=== PATIENT | male | born 1960 | race Caucasian/White ===

== ENCOUNTER 2018-05-24 00:34 | Outpatient (CLI) | payer BC, SELFPAY ==
--- NOTE | 2018-05-24 15:45 | DI.MRI_ITS ---
SYMPTOMS/DIAGNOSIS: PAIN RADIATING DOWN LEFT LEG, LEFT LUMBAR RADICULOPATHY, M54.16, LOW BACK PAIN X YEARS, INCREASING PAIN X 3 MONTHS, NO INJURY, NO SURGERY, PAIN RADIATING LEFT > RIGHT MRI OF THE LUMBAR SPINE: T1, T2 and STIR sagittal and T1 and T2 axial sequences were performed. Comparison is made with abdominal CT dated August,. There is a declivity in the superior endplate of L3, consistent with a Schmorl's node. It appears unchanged when compared with the previous CT. There is loss of disc height and disc bulging from T12-L1 through L2-3. There is no significant central canal stenosis or neural foraminal narrowing at these levels. At L3-4, there is mild broad-based disc bulging and mild facet degenerative changes, but no significant central canal stenosis or neural foraminal narrowing. At L4-5, there is mild broad-based disc bulging. There is a small left paracentral disc protrusion. There are facet degenerative changes and ligamentous hypertrophy, which combine to produce a moderate degree of central canal stenosis. There is also mild left neural foraminal narrowing. At L5-S1, the disc appears intact. There are minimal facet degenerative changes and no significant neural foraminal narrowing or central canal stenosis. The aorta is normal in diameter. The conus medullaris appears normal as well. IMPRESSION: Small left paracentral disc protrusion at L4-5. A combination of degenerative changes and the disc protrusion create moderate central canal stenosis and mild left neural foraminal narrowing.
== END 2018-05-24 00:54 ==
PROVIDERS: PCP Family Medicine; Visit Provider Family Medicine
DX: M54.16 Radiculopathy, lumbar region (principal); M51.27 Other intervertebral disc displacement, lumbosacral region; M48.061 Spinal stenosis, lumbar region without neurogenic claudication; M47.26 Other spondylosis with radiculopathy, lumbar region
CPT/HCPCS: 72148

== ENCOUNTER 2018-07-17 08:11 | Outpatient (CLI) | payer BC, SELFPAY ==
--- NOTE | 2018-07-17 06:00 | DI.RAD_ITS ---
SYMPTOM/DIAGNOSIS: LUMBAR RADICULOPATHY, LUMBAR EPIDURAL STEROID INJECTION C-ARM: Fluoroscopy Time: 21.5sec,7.32mgy Images submitted from the pain clinic demonstrate a needle overlying the midline at the level of L 4-5 in conjunction with a lumbar epidural steroid injection carried out by Dr. Espinoza. Please see the procedure report for further information.
[2018-07-17 08:19] VITALS: BP 130/88; PULSE 63; RESP 16; TEMP 36.9; O2SAT 95
--- NOTE | 2018-07-17 09:16 | PDOC.PAIN ---
Pain Clinic Procedure Note Current Active Problems Problem Status Onset Lumbar radicular pain Chronic Epidural Steroid Injection Procedure Note COMMENTS: Patient has a disc herniation at L4-5 to the left with left lower extremity pain and back pain. He also complains of testicular pain pain radiating to both feet. He has significant thoracic kyphosis on examination JONATHAN LANE has been referred to the [facility] for lumbar epidural steroid injection. The patient was greeted by the nurse who verified patients name and . Patient was then taken to the fluoroscopy suite. The patient was interviewed and the medial record reviewed. There were no medical, pharmacologic, radiographic, or other structural contraindications to attempting fluoroscopically guided lumbar epidural steroid injection. Risks and expected side effects as well as potential benefits of the procedure were reviewed and voiced concerns expressed. The patient consent form was signed and witnessed. Standard patient time-out procedure was performed. The patient was placed in the prone position on the fluoroscopy table and automated blood pressure cuff and pulse oximeter applied. The skin entry point for entering/approaching the epidural space by a {L4-5 left of midline} and marked. Following thorough chlorhexadine preparation of the skin and draping and 1% lidocaine infiltration of the skin entry point and subcutaneous tissues, a 17 gauge Touhy needle was placed under fluoroscopic guidance and with loss of resistance technique into the epidural space. Needle tip placement and depth were aided and confirmed by fluoroscopy. There was no paresthesia or return of blood or CSF through the needle. 1 cc's of Omnipaque 240 was injected with clear epidural spread confirmed with fluoroscopy. 80mg depomedrol was injected. There was not any unusual discomfort expressed by JONATHAN LANE. Patient's vital signs were stable throughout the procedure and were as recorded in nursing records. Follow up plans and appointments were discussed with patient. Post procedure instruction was given as documented in nursing records and having met discharge criteria and was discharged from the [facility]. COMMENTS: Patient will follow-up as needed. I would consider he follow-up with neurology or consider thoracic imaging if he is not improved.
[2018-07-17 09:25] VITALS: BP 151/86; PULSE 76; RESP 13; O2SAT 95
[2018-07-17] MEDS: methylPREDNISolone ACETATE 40 MG/ML VIAL IJ (09:25)
[2018-07-17] MEDS: Omnipaque 240 MG/ML 50 ML BTL IJ (09:25)
== END 2018-07-17 08:31 ==
PROVIDERS: PCP Family Medicine; Visit Provider Anesthesiology Pain Medicine
DX: M54.16 Radiculopathy, lumbar region (principal)
CPT/HCPCS: 62323; 72100; J1030; Q9967

== ENCOUNTER 2020-04-16 19:12 | Outpatient (REF) | payer BC, SELFPAY ==
[2020-04-16 20:41] LABS: Abs Immature Grans 0.03 10^3/uL (0.0-0.06); Absolute Basophil Count 0.05 10^3/uL (0.0-0.2); Absolute Eosinophil Count 0.11 10^3/uL (0.0-0.7); Absolute Lymphocyte Count 3.37 10^3/uL (1.2-3.4); Absolute Monocyte Count 0.75 10^3/uL (0.1-0.8); Absolute Neutrophil Count 5.76 10^3/uL (1.2-6.7); Basophils % 0.5; Eosinophils % 1.1; HCT 43.4 % (40.0-50.0); HGB 14.9 g/dL (13.5-17.5); Immature Grans % 0.3; Lymphocytes % 33.5; MCHC 34.3 % (32.0-36.0); MCV 96.2 fL (80-95); MPV 10.7 fL (8.0-11.0); Monocytes % 7.4; Neutrophils % 57.2; Nucleated RBC 0 %; Platelet Count 258 10^3/uL (130-400); RBC 4.51 10^6/uL (4.36-5.78); RDW 11.5 % (11.8-14.1); RDW-SD 40.8 fL; WBC 10.07 10^3/uL (4.4-10.8)
[2020-04-16 20:48] LABS: ALT 31 U/L (16-63); AST 18 U/L (15-37); Albumin 4.1 g/dL (3.4-5.0); Alkaline Phosphatase 56 U/L (46-116); Anion Gap 9.1 mmol/L (3-11); BUN 13 mg/dL (7-18); Bilirubin, Total 0.3 mg/dL (0.2-1.0); C-Reactive Protein 0.18 mg/dL (0.0-0.3); CO2 27.9 mmol/L (21.0-32.0); Calcium 8.9 mg/dL (8.5-10.1); Chloride 106 mmol/L (98-107); Glucose 91 mg/dL (74-106); Potassium 3.8 mmol/L (3.5-5.1); Sodium 143 mmol/L (136-145); Total Protein 7.3 g/dL (6.4-8.2)
== END 2020-04-16 19:32 ==
LOC: LBN 19:12
PROVIDERS: PCP Nurse Practitioner; Visit Provider Nurse Practitioner Family
DX: R10.9 Unspecified abdominal pain (principal)
CPT/HCPCS: 80053; 85025; 86140

== ENCOUNTER 2020-05-14 01:57 | Outpatient (CLI) | payer BC, SELFPAY ==
[2020-05-15 13:55] LABS: COVID-19 RT-PCR UVMMC Result Negative (Negative)
== END 2020-05-14 01:58 | disposition home or self-care (01) ==
LOC: LBO 01:57
PROVIDERS: PCP Nurse Practitioner; Visit Provider Surgery
DX: Z20.822 Contact with and (suspected) exposure to COVID-19 (principal)
CPT/HCPCS: U0003

== ENCOUNTER 2020-05-18 06:12 | Day surgery (SDC) | payer BC, SELFPAY ==
[2020-05-18 06:20] VITALS: BP 126/82; PULSE 70; RESP 18; TEMP 36.8; O2SAT 95
[2020-05-18] MEDS: Lactated Ringers 1,000 ML 80 ML IV (06:43)
--- NOTE | 2020-05-18 06:54 | W.PM.ENDDOP ---
Date of service: 05/18/20 Time of Service: 07: Endoscopy Report DATE OF PROCEDURE: 05/18/20 PRE-OP DIAGNOSIS: Abdominal pain, Hx of polyps, GERD POST-OP DIAGNOSIS: other (Gastritis, esophagitis, diverticulosis) PROCEDURE: 1. EGD with biopsies 2. Colonoscopy SURGEON: Peggy Lechuga ANESTHESIA: other (General/ASA 2/Humberto Eric, RHIANNON) ESTIMATED BLOOD LOSS: 3 PATHOLOGY: other (Antrum bx, GE junction bx, distal esophagus bx) COMPLICATIONS: None DISPOSITION: same day INDICATIONS: Mr. Givens is a 59-year-old gentleman who has been having abdominal pain for the last 4 to 5 weeks. The pain is along his beltline. Sometimes he feels like even just the pants rubbing on his skin is painful. The pain is worse with sitting or bending. He denies any bowel habit changes. He denies any bleeding, nausea or vomiting. He does have a history of tubular adenomas back in 2014. He was supposed to have another colonoscopy in 2019. He also has a history of GERD. He complains of some bloating and feels like his abdomen is doughy. Labs were within normal when they were checked. He also reports some intermittent malaise and chills. He has not had any fevers and did not have a fever when he was seen at [facility]. I did not feel any right inguinal hernia. I recommend starting with an EGD and colonoscopy. We will make sure that there is no pathology in the stomach or large bowel. If this is negative then I will try to get a CT scan abdomen and pelvis approved by his insurance company. Risks, benefits and alternatives were reviewed with Mr. Givens. Complications include but are not limited to bleeding, infection, perforation, missed small polyp or lesion, adverse reaction to the medications. Questions were entertained and answered to his satisfaction and he wished to proceed. No guarantees were given or implied PREP: Miralax/Dulcolax PROCEDURE START TIME: :28 PROCEDURE END TIME: 07:58 COLONOSCOPY RETRACTION TIME: 14 minutes FINDINGS: Upper endoscopy- inflammation of the stomach and esophagus. ? Mina's Colonoscopy- mild diverticulosis of the descending and sigmoid colon PROCEDURE DESCRIPTION: After informed consent was obtained the patient was take to the procedure room and placed in a supine position. Monitors were applied and a time out was done. The patients name, date of , procedure type, allergies to medications and metal in their body was reviewed. A bite block was placed and the patient was sedated. Once sedated and comfortable the gastroscope was advanced through the oropharynx which was grossly normal into the esophagus. The proximal and mid-esophagus were normal. In the distal esophagus there was mild inflammation noted. The scope was advanced into the stomach and through the pylorus into the 3rd portion of the duodenum. The duodenum was noted to be normal. The scope was retracted back into the stomach. There was moderate inflammation noted in the antrum. Biopsies were done to rule out H. pylori. There were no ulcers. The scope was retro-flexed. The cardia and fundus were noted to be normal. There was a small hiatal hernia noted. The scope was retracted back into the esophagus and biopsies were done of the GE junction to rule out Mina's. The Z line was regular. The GE junction was at 35 cm. Biopsies of the esophagus were done at 30 cm. While the patient was still sedated they were placed in a left decubitous position. A rectal exam was done. External exam was normal. Internal exam revealed a normal sphincter tone and no palpable masses. The prostate felt smooth and slightly enlarged. The scope was then introduced and retro-flexed. No internal hemorrhoids, masses or polyps were identified on retroflexion. The scope was then advanced to the cecum without difficulty. The ileocecal valve and appendiceal orifice were identified. The prep was adequate. The scope was then slowly retracted over 14 minutes back into the rectum. There were no polyps. There was mild diverticulosis noted in the descending and sigmoid colon. The scope was removed and the patient was woken up and taken back to Same day surgery in stable condition. The patient tolerated the procedure well and there were no immediate complications. Follow up: I will order a CT scan abdomen and pelvis as I didn't find anything on his Colonoscopy to explain his abdominal pain. I will see him in the office after he has his CT scan done.
--- NOTE | 2020-05-18 06:55 | W.PM.DSUDISC ---
Discharge Plan Disposition Patient Disposition: HOME Condition: Good Discharge Details Reason For Visit: Colonoscopy and EGD Attending Provider: Peggy Lechuga Primary Care Provider: Rylee Elizondo Home Meds and New Rx's Prescriptions: New omeprazole 40 mg capsule,delayed release(DR/EC) 40 mg PO DAILY Qty: 30 RF: 0 Continued ibuprofen [Advil Liqui-Gel] 200 MG capsule 200 mg PO PRN RF: 0 lorazepam 1 mg tablet 0.5 mg PO HS PRN (Reason: anxiety) Qty: 30 RF: 0 Discontinued bisacodyl [Dulcolax (bisacodyl)] 5 mg tablet,delayed release (DR/EC) 5 mg PO ONCE Qty: 4 RF: 0 polyethylene glycol 3350 17 gram powder in packet 255 g PO DAILY Qty: 15 RF: 0 omeprazole 20 mg capsule,delayed release(DR/EC) 20 mg PO DAILY Qty: 90 RF: 4 Discharge Instructions Instructions: Gastritis (DC), Diverticulosis (DC), Diet for Stomach Ulcers and Gastritis (ED), GERD (Gastroesophageal Reflux Disease) (DC) Additional Instructions: Findings: Inflammation of the stomach and esophagus Diverticulosis of large intestine Follow up: I will order a CT scan and then see you after that Please call if you develop: fevers >101.5 Nausea or Vomiting Abdominal pain that is not transient DAY SURGERY UNIT POST ENDOSCOPY INSTRUCTIONS 1. Because there will be medication in your system for the next 24 hours, you may feel a little sleepy. Your coordination will be affected. Therefore: a. Do not drive or operate dangerous equipment for 24 hours. b. Do not drink alcohol beverages for 24 hours (not even beer). c. Plan to go home and rest for the day. 2. Generally there are no restrictions on your activity after a day or so has gone by, but you may feel a bit fatigued for a few days. 3 After you arrive home you may have a light meal and return to a normal diet as you can tolerate it without feeling sick to your stomach. 4. After surgery, you may feel pain or discomfort. This should be only transient, but if it persists please contact your doctor. 5. If there are any questions regarding the findings of your procedure, please feel free to contact your doctor. 6. If you are unable to contact your doctor with a problem, contact the hospital at [phone]. 7. Continue all your regular medications unless directed otherwise. I understand the above instructions and have no questions. Signature of Patient or Responsible Adult Escort Date/Time Name of Responsible Adult Escort Signature of Nurse Date/Time Activity:: Activity as Tolerated Diet:: High Fiber diet Discharge Orders Discharge Orders: Discharge Order (Routine); Ordered 05/18/20 Ordered By: Peggy Lechuga
--- NOTE | 2020-05-18 07:32 | STOM_PTH ---
PATIENT: Axel Givens LOC: [facility] U#:[id number] AGE/SX: 59/M ROOM: RE05/18/[address]: Peggy Lechuga MD : 1960 BED: DIS: 05/18/2020 SPEC #: [id number] RECD: 05/18/20 12:48 STATUS: ISATU RERenato #: [id number] ESTHER: 05/18/20 07:[address]: Peggy Lechuga DEPT: Surgical Specimen RECD BY: Hoa Estes ENTERED: 05/18/20 12:49 SP TYPE: STOMACH OTHR DR: Rylee Elizondo, PhD HEAD GOLF COACH Tissues: 1 - STOMACH BIOPSY 2 - ESOPHAGUS BIOPSY 3 - ESOPHAGUS BIOPSY Procedures: GROSS AND MICRO LEVEL 4 Comments: [id number]
[2020-05-18 08:30] VITALS: BP 109/68; PULSE 62; RESP 16; TEMP 36.4; O2SAT 94
== END 2020-05-18 09:04 | disposition home or self-care (01) ==
PROVIDERS: PCP Nurse Practitioner; Visit Provider Surgery
PROC: (CPT 43239; principal; 2020-05-18 07:30)
DX: K22.70 Barrett's esophagus without dysplasia (principal); K57.30 Diverticulosis of large intestine without perforation or abscess without bleeding; R10.9 Unspecified abdominal pain; J44.9 Chronic obstructive pulmonary disease, unspecified; F32.9 Major depressive disorder, single episode, unspecified; E78.5 Hyperlipidemia, unspecified
CPT/HCPCS: 43239; 45378; 88305

== ENCOUNTER 2020-05-21 03:11 | Outpatient (CLI) | payer BC, SELFPAY ==
[2020-05-21] MEDS: Normal Saline - Diluent 50 ML VIAL IV (14:14)
[2020-05-21] MEDS: Omnipaque 350 MG/ML 100 ML BTL IJ (14:14)
[2020-05-21] MEDS: Normal Saline Flush 10 ML SYR IVP (14:15)
--- NOTE | 2020-05-21 14:20 | DI.CT_ITS ---
EXAM: CT ABDOMEN PELVIS W CLINICAL HISTORY: nl colonoscopy and EGD,ABD PAIN, R10.30. TECHNIQUE: Imaging Protocol: Axial computed tomography images with coronal and sagittal reformatted images were created and reviewed CONTRAST MATERIAL: Intravenous: Omnipaque 350 Contrast volume:100 ml Oral: yes COMPARISON: CT UPPER ABD WITH CONTRAST (P) from 09/20/2011 FINDINGS: ABDOMEN: Lung Bases: Normal where visualized. Liver: Mild fatty infiltration.. No measurable mass. Gallbladder and biliary tract: No radiodense calculus or dilation. Pancreas: Normal density, no abnormal calcifications or inflammatory process. Spleen: Normal. Kidneys: Normal size, contour and axis. No radiodense stones or obstructive uropathy. No masses seen. Adrenal glands: No masses seen. Abdominal Aorta: Abdominal portion non-dilated. Mild atherosclerotic changes. Stomach and duodenum: Unremarkable. No evidence of perforation. No wall thickening. PELVIS: Bladder: Symmetric distention, no gross wall thickening. Bowel: Sigmoid diverticulosis. No evidence of diverticulitis. Normal appendix. No obstruction or b owel wall thickening. Peritoneal cavity: No ascites, collection or mesenteric inflammatory response. Bones: Degenerative changes. Schmorl's node at the superior endplate of L3. Stable anterior wedging of the lower thoracic vertebral bodies. Reproductive organs: Within normal limits. Lymph nodes: Unremarkable. Impression: No acute abnormality. Chronic findings as mentioned above. RADIATION DOSE DELIVERED: 813.12mGy.cm Total DLP DATA REPOSITORY: All CT scans at this facility are submitted to the National Radiology Data Registry (NRDR) Dose Index Registry (DIR) with the [employer] (ACR). RADIATION OPTIMIZATION: All CT scans at this facility use at least one of these dose optimization te chniques: automated exposure control; mA and/or kV adjustment per patient size (includes targeted exa ms where dose is matched to clinical indication); or iterative reconstruction.
== END 2020-05-21 03:12 ==
LOC: DI 03:11
PROVIDERS: PCP Nurse Practitioner; Visit Provider Surgery
DX: R10.30 Lower abdominal pain, unspecified (principal); K76.0 Fatty (change of) liver, not elsewhere classified
CPT/HCPCS: 74177; J3490

== ENCOUNTER 2020-06-08 15:25 | Outpatient (REF) | payer BC, SELFPAY ==
--- NOTE | 2020-06-08 14:15 | SKI_PTH ---
PATIENT: Axel Givens LOC: [facility] U#:[id number] AGE/SX: 60/M ROOM: RE06/08/[address]: Peggy Lechuga MD : 1960 BED: DIS: 06/08/2020 SPEC #: [id number] RECD: 06/08/20 17:45 STATUS: ISATU RERenato #: [id number] ESTHER: 06/08/20 14:[address]: Peggy Lechuga DEPT: Surgical Specimen RECD BY: Hoa Estes ENTERED: 06/08/20 17:46 SP TYPE: [place]MB[place]LY [place] DR: Rylee Elizondo, PhD WELL SHOOTER Tissues: 1 - SKIN BIOPSY(SHAVE/PUNCH) Procedures: SKIN LEVEL 4 Comments: [id number]
== END 2020-06-08 15:26 | disposition home or self-care (01) ==
LOC: LBN 15:25
PROVIDERS: PCP Nurse Practitioner; Visit Provider Surgery
DX: C44.319 Basal cell carcinoma of skin of other parts of face (principal)
CPT/HCPCS: 88305

== ENCOUNTER 2020-06-22 13:54 | Outpatient (REF) | payer BC, SELFPAY ==
--- NOTE | 2020-06-22 13:15 | SKI_PTH ---
PATIENT: Axel Givens LOC: N U#:[id number] AGE/SX: 60/M ROOM: RE06/22/[address]: Peggy Lechuga MD : 1960 BED: DIS: 06/22/2020 SPEC #: [id number] RECD: 06/22/20 17:27 STATUS: ISATU RERenato #: [id number] ESTHER: 06/22/20 13:[address]: Peggy Lechuga DEPT: Surgical Specimen RECD BY: Hoa Estes ENTERED: 06/22/20 17:28 SP TYPE: [facility]MB[place] [place] DR: Rylee Elizondo, PhD FORENSICS TEAM DIRECTOR Tissues: 1 - SKIN BIOPSY(SHAVE/PUNCH) Procedures: SKIN LEVEL 4 Comments: [id number]
== END 2020-06-22 13:55 | disposition home or self-care (01) ==
LOC: LBN 13:54
PROVIDERS: PCP Nurse Practitioner; Visit Provider Surgery
DX: L90.5 Scar conditions and fibrosis of skin (principal); C44.319 Basal cell carcinoma of skin of other parts of face
CPT/HCPCS: 88305

== ENCOUNTER 2020-12-14 10:36 | Outpatient (CLI) | payer BC, SELFPAY ==
--- NOTE | 2020-12-14 09:45 | DI.RAD_ITS ---
Exam(s) XR SHOULDER RT COMPLETE 2+V EXAM: XR SHOULDER RT COMPLETE 2+V CLINICAL HISTORY: RIGHT SHOULDER PAIN. TECHNIQUE: 2D digital imaging was performed of the right shoulder. Two images were obtained. AP an d axillary views were obtained. COMPARISON: No exams were available for comparison FINDINGS: BONES: No acute fracture is present. No bony destructive lesion is seen. JOINTS: No dislocation present. Mild hypertrophic changes are seen at the acromioclavicular joint. SOFT TISSUE: Soft tissue calcification adjacent to the humeral head consistent with calcific tendinit is. IMPRESSION: Degenerative changes of the right shoulder. DATA REPOSITORY: RADIATION DOSE DELIVERED:
== END 2020-12-14 10:37 | disposition home or self-care (01) ==
LOC: DIORS 10:37
PROVIDERS: PCP Nurse Practitioner; Referring Provider Nurse Practitioner; Visit Provider Student in an Organized Health Care Education/Training Program
DX: M25.511 Pain in right shoulder (principal); M19.011 Primary osteoarthritis, right shoulder
CPT/HCPCS: 73030

== ENCOUNTER 2021-02-10 02:07 | Outpatient (CLI) | payer BC, SELFPAY ==
[2021-02-10 12:57] LABS: ALT 48 U/L (16-63); AST 23 U/L (15-37); Albumin 4.1 g/dL (3.4-5.0); Alkaline Phosphatase 55 U/L (46-116); Anion Gap 5.7 mmol/L (3-11); BUN 14 mg/dL (7-18); Bilirubin, Total 0.5 mg/dL (0.2-1.0); CO2 32.3 mmol/L (21.0-32.0); CREATININE 0.9 mg/dL (0.70-1.30); Calcium 9.2 mg/dL (8.5-10.1); Calculated LDL 164 mg/dL (<100); Chloride 105 mmol/L (98-107); Cholesterol 242 mg/dL (<200); Glucose 90 mg/dL (74-106); HDL Cholesterol 57 mg/dL (40-60); Potassium 4.9 mmol/L (3.5-5.1); Sodium 143 mmol/L (136-145); Total Protein 7.6 g/dL (6.4-8.2); Triglyceride 108 mg/dL (<150)
== END 2021-02-10 02:08 | disposition home or self-care (01) ==
LOC: LOS 02:07
PROVIDERS: PCP Nurse Practitioner; Visit Provider Nurse Practitioner
DX: E78.5 Hyperlipidemia, unspecified (principal); K21.9 Gastro-esophageal reflux disease without esophagitis
CPT/HCPCS: 36415; 80053; 80061

== ENCOUNTER 2021-03-01 00:32 | Outpatient (CLI) | payer BC, SELFPAY ==
--- NOTE | 2021-03-01 07:30 | DI.MRI_ITS ---
Exam(s) MR UPPER JOINT RT WO EXAM: MR UPPER JOINT RT WO CLINICAL HISTORY: worsening symptoms,IMPINGEMENT SYNDROME,TENDINITIS,RT ROTATOR CUFF TEAR. TECHNIQUE: Multiplanar multisequence MRI was performed. COMPARISON: CR XR SHOULDER RT COMPLETE 2+V from 12/14/2020 FINDINGS: BONES: There is no fracture or contusion pattern. JOINTS: Degenerative signal changes are seen at the acromioclavicular joint. The glenohumeral joint is normal. TENDONS: Supraspinatus: There is hyperintense signal seen at the supraspinatus insertion site on the greater t uberosity suspicious for partial tear. Infraspinatus: Unremarkable. Subscapularis: There is tendinosis of the subscapularis tendon. [place]: Unremarkable. Biceps and [place]: Unremarkable. MUSCLES: Unremarkable. GLENOID LABRUM: Unremarkable on this noncontrast examination. SOFT TISSUES: There is a multiloculated fluid collection posterior and superior to the glenoid. Ther e appears to be some communication with the posterior superior labrum. It measures at least 5.3 x 1. 5 cm. LIGAMENTS: Unremarkable. OTHER: Subacromial and subdeltoid bursae are unremarkable. IMPRESSION: 1. Findings suspicious for a small tear of the supraspinatus tendon. 2. Spinal glenoid notch cyst with question of extension from the posterior superior labrum. This can be seen with posterior superior labral tear. 3. DATA REPOSITORY:
== END 2021-03-01 00:52 ==
PROVIDERS: PCP Nurse Practitioner; Visit Provider Student in an Organized Health Care Education/Training Program
DX: M75.101 Unspecified rotator cuff tear or rupture of right shoulder, not specified as traumatic (principal); M75.21 Bicipital tendinitis, right shoulder; M75.41 Impingement syndrome of right shoulder; M75.51 Bursitis of right shoulder; R93.7 Abnormal findings on diagnostic imaging of other parts of musculoskeletal system
CPT/HCPCS: 73221

== ENCOUNTER 2021-03-15 01:40 | Outpatient (CLI) | payer BC, SELFPAY ==
[2021-03-15 10:26] LABS: Source Nasal/Nares
[2021-03-15 13:07] LABS: COVID-19 PCR Negative (Negative)
== END 2021-03-15 01:41 | disposition home or self-care (01) ==
LOC: LBO 01:40
PROVIDERS: PCP Nurse Practitioner; Visit Provider Student in an Organized Health Care Education/Training Program
DX: Z20.822 Contact with and (suspected) exposure to COVID-19 (principal); Z01.818 Encounter for other preprocedural examination
CPT/HCPCS: 87635

== ENCOUNTER 2021-03-17 07:22 | Day surgery (SDC) | payer BC, SELFPAY ==
[2021-03-17] VITALS (11 sets, daily range): BP systolic 112–140; BP diastolic 61–95; PULSE 58–70; RESP 12–16; TEMP 36–36.9; O2SAT 93–98; BMI 29.7
--- NOTE | 2021-03-17 07:54 | W.ANESPRE ---
General Info Date of Service Date Performed: 03/17/21 Height: 5 ft 10 in Weight: 93.894 kg Body Mass Index (BMI): 29.7 Surgical Procedure: Operation Date: 03/17/21 09:10 Proposed Procedures Side Surgeon p Shoulder Arthroscopy w/ Biceps Tenodesis, Para-labral Cyst Decompression, SLAP/Labral repair, Subacromial Decompression Right Robbie Andrew MD Meds Allergies and Home Medications Allergies Allergy/AdvReac Type Severity Reaction Status Date / Time No Known Allergies Allergy Unverified 03/17/21 07:38 Home Medication Medication Instructions Recorded omeprazole 40 mg capsule,delayed 40 mg PO DAILY #90 cap 07/08/20 release atorvastatin 40 mg tablet 40 mg PO QPM #90 tab 02/10/21 nicotine 14 mg/24 hr daily 1 patch TRANSDERMAL Q24H #28 ea 02/22/21 transdermal patch aspirin 81 mg PO DAILY 14 Days #14 tab 03/17/21 naproxen 250 - 500 mg PO BID PRN #40 tab 03/17/21 oxycodone 5 - 10 mg PO Q4H PRN #18 tab 03/17/21 Current Visit Medications: Current Medications Generic Name Dose Route Start Last Admin Trade Name Freq PRN Reason Stop Dose Admin Ringer's Solution 1,000 mls @ 100 mls/hr 03/17/21 06:00 IV 04/15/21 23:59 INFUSION [place] Cefazolin Sodium/Dextrose 2 gm in 50 mls @ 100 mls/hr 03/17/21 06:00 Ancef Duplex IVPB 03/17/21 16:00 PREOP [place] IV Miscellaneous Supplies 1 each 03/17/21 06:00 Iv Access IV 04/15/21 23:59 DIRECTED [place] Naproxen 250 - 500 mg 03/17/21 07:17 Naproxen 500 Mg Tab PO BID PRN PRN Oxycodone HCl 5 - 10 mg 03/17/21 07:17 Oxycodone 5 Mg Tab PO Q4H PRN PRN Sodium Chloride 0 ml 03/17/21 06:00 Normal Saline Flush 10 Ml Syr IV 04/15/21 23:59 PRN PRN Sodium Chloride 0 ml 03/17/21 06:00 Normal Saline 10 Ml Vial IJ 04/15/21 23:59 DIRECTED PRN Sterile Water 0 ml 03/17/21 06:00 Water,Injection,Sterile 10 Ml Vial IJ 04/15/21 23:59 DIRECTED PRN PFSH Active Problems Active Problems: Problem Status Onset Code Paralabral cyst of right shoulder S43.431A SLAP lesion of right shoulder S43.431A Calcific tendonitis of right shoulder region M75.31 Tobacco dependence F17.200 Cataract H26.9 Cystoid macular edema ~11/2020 H35.359 Impingement syndrome of right shoulder M75.41 Bursitis of right shoulder M75.51 Tendinitis of long head of biceps brachii of right shoulder M75.21 Basal cell carcinoma (BCC) C44.91 Spinal stenosis at L4-L5 level M48.061 Lumbar radicular pain M54.16 Mina's esophagus K22.70 Hyperlipidemia E78.5 Gastroesophageal reflux disease K21.9 Chronic obstructive lung disease J44.9 Medical History Active Problem List Calcific tendonitis of right shoulder region (Acute) Rotator cuff tear, right (Acute) Tobacco dependence (Acute) Cataract (Chronic) Cystoid macular edema (Acute ~11/2020) Impingement syndrome of right shoulder (Acute) Bursitis of right shoulder (Acute) Tendinitis of long head of biceps brachii of right shoulder (Acute) Basal cell carcinoma (BCC) (Acute) Spinal stenosis at L4-L5 level (Acute) Lumbar radicular pain (Acute) Mina's esophagus (Acute) Hyperlipidemia (Chronic) Gastroesophageal reflux disease (Chronic) Chronic obstructive lung disease (Chronic) Medical History Bursitis of right shoulder COPD (chronic obstructive pulmonary disease) Depression Depressive disorder GERD (gastroesophageal reflux disease) Hyperlipidemia Multiple fractures Pain in right testicle (02/04/16) Tick bite of abdomen Doxycycline 100 mgs. BID for 2 weeks given that he is not sure how long tick was attached, but at least 2 days. As long as he does not develop other symptoms, no tick testing. Delayed health maintenance and asked for an appointment to see Dr. Raymond. Ordered routine annual type lab prior for Dr. Raymond to discuss with him. It's been over 3 years since last check. Tobacco use disorder Tubular adenoma (03/04/15) x 3 Surgical History Surgical History Arthroplasty of knee per pt. was just a scope Extraction of cataract foot surgery H/O esophagogastroduodenoscopy (~05/18/20) S/P colonoscopy (~05/18/20) 2015- Tubular adenoma x3 2020- normal Tobacco Smoking/Tobacco Use Status: Current every day Tobacco Type: cigarettes Passive smoking exposure: Yes Quit Status: considering quitting Alcohol Alcohol Intake: current Alcohol intake frequency: 3 or more drinks per day Substance Use Substance use: Daily Substance use type: marijuana Vital Signs and Lab Results Lab Results Blood Type / Crossmatch: No Data to Display Complete Blood Count: No Data to Display Complete Metabolic Panel: No Data to Display Liver Function Panel: No Data to Display Coagulation Panel: No Data to Display Cardiac Panel: No Data to Display Arterial Blood Gas: No Data to Display Venous Blood Gas: No Data to Display Pancreas Panel: No Data to Display Thyroid Panel: No Data to Display Infectious Disease: Coronavirus (COVID-19)(PCR) Negative (Negative) 03/15/21 08:34 03/15/21 Coronavirus 2019 Source Nasal/Nares 03/15/21 08:34 03/15/21 Blood Cultures: No Data to Display Toxicology Panel: No Data to Display Anesthesia Assessment and Plan Anesthesia History Personal History: No History of Anesthesia Complications Family History: No Family History of Anesthesia Complications Exercise Tolerance Exercise Tolerance: Metabolic Equivalents>4 Pertinent Negatives Pertinent Negatives: No Symptoms of GERD, No Major Cardiovascular Symptoms or Complaints, No Major Pulmonary Symptoms or Complaints and No History of CVA/TIA Cardiac & Pulmonary Exam Cardiac Exam: Normal S1/S2 Heart Sounds Pulmonary Exam: Clear Bilateral Breath Sounds Implantable Cardiac Device Does patient have a Pacemaker or an ICD?: No Airway Exam Known Difficult Airway: No Mallampati Class: 2 Mouth Opening: Normal (> 3cm) Thyromental Distance: Greater than 3 cm Neck Range of Motion: Full ROM Neck Circumference: Normal Teeth Condition: Normal Dentition ASA Classification ASA Score: ASA 2 Emergency Case?: No NPO Status NPO Status: NPO Clears >2 hours, Solids >8 hours Anesthesia Plan Resuscitation Status: Full Code Anesthesia Technique: General Anesthesia Airway Planned: Endotracheal Tube Pain Management: Surgeon and patient request nerve block Monitors Used: Standard Monitors
[2021-03-17] MEDS: Lactated Ringers 1,000 ML 100 ML IV (08:26)
--- NOTE | 2021-03-17 08:48 | W.ANESNERVE ---
Nerve Block Single Injection Procedure Date and Time Date Performed: 03/17/21 Procedure Start: 08:30 Location Where Procedure Performed Procedure Location: Day Surgery Unit Reason Performed: Postoperative Analgesia Requesting Provider: Robbie Andrew Timeout Performed Timeout Performed: Yes Monitoring Used ECG, Blood Pressure, SpO2 and See EMR for corresponding vital signs Sterility Sterility: Hand Hygiene, Surgical Cap, Surgical Mask, Sterile Gloves and Chlorhexidine Sedation Given During Procedure Sedation Given (Indicate Dose Given): Versed IV Dose:: 2 mg Patient Mental Status Patient Mental Status: Sedate with meaningful communication Nerve Block 1st Nerve Block: Laterality: Right Block Type: Interscalene Needle / Catheter Used: 100mm SonoPlex II Local Anesthetic Bolus (Indicate Dose Given): Lidocaine used for local infiltration of skin, Injected in 3-5ml increments after negative blood aspiration, Bupivacaine 0.5% Dose:: 10 ml and Exparel Dose:: 10 ml Additives (Indicate Dose Given): None Ultrasound: Sterile probe cover and gel used Ultrasound Image Saved?: Yes Nerve Stimulator: Not Used Paresthesia: None Procedure Tolerated: No Complications Procedure Outcome: Successful Performed By: Elvira Dye Supervised By: Janelle Thorne
[2021-03-17] MEDS: Normal Saline Flush 10 ML SYR IV (08:50)
[2021-03-17] MEDS: ceFAZolin 2 GM/50 ML BAG IVPB (09:04)
[2021-03-17] MEDS: EPINEPHrine 30 MG/30 ML VIAL (11:33)
--- NOTE | 2021-03-17 11:36 | PDOC.DSDIS_ITS ---
Discharge Plan Disposition Patient Disposition: HOME Condition: Stable Discharge Details Reason For Visit: Right shoulder surgery Attending Provider: Robbie Andrew Primary Care Provider: Rylee Elizondo Home Meds and New Rx's Prescriptions: New aspirin 81 mg tablet,delayed release (DR/EC) 81 mg PO DAILY 14 Days Qty: 14 RF: 0 naproxen 250 mg tablet 250 - 500 mg PO BID PRNQty: 40 RF: 0 oxycodone 5 mg tablet 5 - 10 mg PO Q4H PRN (Reason: moderate to severe pain) Qty: 18 RF: 0 Continued omeprazole 40 mg capsule,delayed release(DR/EC) 40 mg PO DAILY Qty: 90 RF: 4 atorvastatin 40 mg tablet 40 mg PO QPM Qty: 90 RF: 4 nicotine [Nicoderm CQ] 14 mg/24 hr patch 24 hour 1 patch transdermal Q24H Qty: 28 RF: 0 Discontinued ibuprofen [Advil Liqui-Gel] 200 MG capsule 200 mg PO PRN RF: 0 Discharge Instructions Additional Instructions: Surgery: Right shoulder arthroscopy with biceps tenodesis, extensive debridement including para-labral cyst decompression, labral repair, and subacromial decompression. Activity: For 4 weeks, you should keep your arm at your side in a neutral position at all times except for physical therapy. Do not try to lift or raise your arm using your own muscles. You should use the sling whenever you are out of the house. You may have to adjust the abduction pillow or remove it for comfort. At home it is best to remove the sling and rest the arm on a pillow at your side or support the operative side with your other hand. You may allow the arm to dangle at your side. A physical therapy prescription will be sent electronically to begin in 2-3 weeks. Prescriptions: Aspirin 81 mg take 1 daily to prevent a blood clot for 2 weeks Naproxen 250 mg take 1-2 every 12 hours with a meal as needed for moderate pain Oxycodone 5 mg take 1-2 every 4-6 hours as needed for severe pain You may use [id number] Tylenol (acetaminophen) as needed for mild pain. These pain medications may be taken all at once or in different combinations as needed. Also, recommend Colace (docusate) as a stool softener as surgery and pain medicine cause constipation. Dressings: Remove shoulder bandage after 3 days. Leave the sticky Steri-Strips in place until they fall off or remove them after you shower. Cover the incisions with Band-Aids or leave them open to air. The biceps bandage (inside upper arm) is glued on separately. You may leave this one on a few days longer if it is difficult to remove. There is also glue underneath this bandage that can be left in place until it peels off. You may shower after 5 days. Follow-up: 10-[address] Andrew You may take off the leg compression stockings this evening at home. You may also leave them on a few days longer if you have a history of leg swelling or edema. Let us know right away if you develop any redness, drainage, fevers, chest pain, or trouble breathing. Do not drink alcohol or drive for at least 24 hours after anesthesia. Please call the office during business hours with any questions or concerns. Referrals: Robbie Andrew MD [ [facility] STAFF PHYSICIAN] - Discharge Orders Discharge Orders: Discharge Order (Routine); Ordered 03/17/21 Ordered By: Robbie Andrew DS: Diagnosis Discharge Diagnosis (1) Paralabral cyst of right shoulder: Status: Acute (2) SLAP lesion of right shoulder: Status: Acute (3) Calcific tendonitis of right shoulder region: Status: Acute (4) Bursitis of right shoulder: Status: Acute (5) Impingement syndrome of right shoulder: Status: Acute (6) Tendinitis of long head of biceps brachii of right shoulder: Status: Acute
--- NOTE | 2021-03-17 12:00 | W.PM.OP ---
Date of service: 03/17/21 Time of Service: 10:00 Operative Note Operative Note DATE OF PROCEDURE: 03/17/21 PRE-OP DIAGNOSIS: Right: 1. Spinoglenoid notch para-labral cyst 2. SLAP tear 3. Bursitis 4. Calcific tendinitis POST-OP DIAGNOSIS: same PROCEDURE: Right: 1. SLAP repair, CPT# 38262. This involved suture anchor fixation of the posterior superior labrum. 2. Arthroscopic biceps tenodesis, CPT# 35009. This involved arthroscopically suturing and reattaching the long head of the biceps tendon to the proximal humerus at the superior margin of the bicipital groove with a screw at the correct tension. 3. Extensive debridement, CPT# 76125. This involved using arthroscopic hand instruments, power instruments, and radiofrequency instruments to release the long head of the biceps tendon and debride areas of labral tearing, synovitis, and partial articular sided rotator cuff tearing about the biceps groove within the glenohumeral joint anteriorly, superiorly and posteriorly as well as decompress the para-labral cyst. 4. Subacromial decompression, CPT# 10617. This involved using arthroscopic power instruments and a radiofrequency wand to complete a bursectomy. The psychiatric nursing assistant was medically required in order to help assist in techniques above, which require positioning the arm, holding the arthroscope, and manipulating multiple instruments and sutures at the same time. This cannot be done without the help of an experienced psychiatric nursing assistant. SURGEON: Robbie Andrew FAILURE ANALYSIS TECHNICIAN: Levi Bermudez ANESTHESIA TYPE: General LMA/ETT and Primary Nerve Block Refer to Anesthesia Record ESTIMATED BLOOD LOSS: 15 PATHOLOGY: none sent COMPLICATIONS: None Patient was transported to: PACU Patient's condition: stable Implants: Arthrex: Knotless 4.75mm SwiveLocks x 1 and Knotless 1.8 mm FiberTak x 1 Indications: The patient was diagnosed with the above conditions and appropriately indicated for surgical intervention. Please see complete medical record for details. Findings: Exam under anesthesia: Full range of motion, no instability Glenohumeral joint: Degenerative and deficient anterior labrum with unstable biceps anchor and continuation posterior superior SLAP labral tear with significant labral fraying. Chuy variant. Discoid superior labrum. Mild anterior subscapularis and supraspinatus articular sided fraying. No apparent subscapularis calcific anterior deposition. Subacromial space: Significant bursitis. No significant undersurface acromial bone spur. Procedure Description: In the operating room, general anesthesia was induced. Bilateral shoulders were examined. The patient was positioned in the beachchair position. All bony prominences were well-padded. Preoperative antibiotics were administered. The shoulder was prepped and draped in the usual sterile fashion. The correct patient, procedure, and side of the procedure were all verified prior to incision. Starting through the posterior portal a standard complete diagnostic arthroscopy was performed of the glenohumeral joint including inspection of the long head of the biceps, anterior and superior labrum, subscapularis tendon, supraspinatus and infraspinatus tendons, and axillary recess. The glenoid and humeral head cartilage as well as the posterior labrum were inspected from an anterior viewing portal. Significant findings and interventions noted above. A rigid 7 mm cannula was inserted anteriorly. An all-arthroscopic suprapectoral biceps tenodesis was performed through an anterior portal using a Loop N Tack method with a SutureTape FiberLink cinched around and through the tendon. Care was taken to preserve biceps tendon length relationship. The biceps was tenotomized from the labrum and fixated with a knotless 4.75 mm swivel lock suture anchor at the superior margin of the bicipital groove. The knotless repair stitch was then passed through the biceps tendon stump using a chin stitch passer and shuttled through the suture anchor mechanism for added fixation strength. Attention was then turned towards debriding the biceps tendon anchor and significant SLAP tear. The discoid superior labrum was saucerized to a more appropriate shape. The anterior labrum was deficient of labrum as there was a [place] complex present. The posterior superior labrum was also debrided. The para labral cyst could not be visualized from anterior or posterior. Indirect decompression was chosen. A 18 mm spinal needle was inserted through the port of [place] directed near the scapular spine cyst location. 5 cc of gelatinous material was able to be withdrawn and removed from the cyst. The needle was withdrawn. Probe was used to hold open cyst orifice and only a small amount of residual cyst gelatinous material could be expressed with direct manual pressure above and below the scapular spine. Care was taken to avoid working more than 1 cm medial to the glenoid margin to avoid the suprascapular nerve. A rigid cannula had been inserted posteriorly but there was not adequate working space so it was removed for preparation of the superior and posterior superior glenoid margin bony bed to optimize tissue healing. The percutaneous kit was used to place a 17-gauge needle, nitinol wire, mini dilator, and then curved fiber tack guide over the Nitinol wire through the port of [place] taking care to penetrate the more medial aspect of the rotator cuff. The labrum was withdrawn medially with a switching stick posteriorly. The curved guide was secured on the posterior superior bony rim about the site of cyst orifice with gentle mallet with retractor aimed at the central medial bone avoiding joint or scapular neck penetration. Single 1.8 mm all suture FiberTape anchor was inserted through the guide and properly deployed with good pullout strength. The switching stick was then used to protect and retract the posterior superior capsule while a BirdBeak penetrator was used to pass the repair stitch around the labrum in a simple configuration avoiding any entrapment of capsular tissue. The repair stitch was then shuttled through the knotless mechanism and under direct visualization fixation secured about the cyst entrance incorporating only posterior superior SLAP labral tear tissue. Although the biceps tendon anchor more centrally and anterosuperiorly remain torn and could be displaced from the glenoid, the tissue quality was degenerative and poor and unlikely to heal successful if repaired. Decision was made to omit any additional SLAP repair in this biceps tendon anchor region especially considering biceps tenodesis. Starting through the posterior portal, the arthroscope was directed into the subacromial space. A lateral 50 yard line lateral portal was omitted. A combination of power instruments and a radiofrequency ablator were used to debride bursitis anteriorly, posteriorly, and laterally. The coracoacromial ligament was preserved. The shoulder was drained of arthroscopic fluid. All portal sites were copiously irrigated. These incisions were closed using 3-0 Monocryl in a buried fashion and then covered with Mastisol, Steri-Strips, Xeroform, dry gauze, and ABDs. The dressings were covered and secured with Medipore tape. The operative extremity was placed into a sling for immobilization. The patient awoke from anesthesia without complication and was transferred to the recovery room in a stable condition.
[2021-03-17] MEDS: fentaNYL 100 MCG/2 ML VIAL IVP ×2 (12:13→12:31)
--- NOTE | 2021-03-17 12:47 | W.ANESPOSTOP ---
Postoperative Evaluation Date, Time and Location Date Performed: 03/17/21 Time Performed: 12:47 Patient Location: PACU Vital Signs Most Recent Imported Vital Signs: Most Recent Vital Signs Temp Pulse Resp BP Pulse Ox 36.3 C L 67 16 130/88 93 03/17/21 12:40 03/17/21 12:40 03/17/21 12:40 03/17/21 12:40 03/17/21 12:40 Pain Score Most Recent Pain Score: Most Recent Pain Score Pain Level 3 03/17/21 12:40 Assessment Mental Status: Awake (Alert & Oriented to Patient Baseline) Airway and Respiratory Function: Patent airway with normal (patient baseline) respiratory exam Cardiovascular Function: Hemodynamically Stable Hydration Status: Adequately Hydrated Nausea & Vomiting: No Nausea or Vomiting Pain: Pain is tolerable per patient Peripheral Nerve Block: Regional nerve block not resolved at time of post operative discharge
[2021-03-17] MEDS: oxyCODONE 5 MG TAB PO (13:26)
== END 2021-03-17 14:25 | disposition home or self-care (01) ==
LOC: SUR 07:23
PROVIDERS: PCP Nurse Practitioner; Visit Provider Student in an Organized Health Care Education/Training Program
PROC: (CPT 29805; principal; 2021-03-17 09:00)
DX: M75.31 Calcific tendinitis of right shoulder (principal); M75.41 Impingement syndrome of right shoulder; M75.51 Bursitis of right shoulder; M75.21 Bicipital tendinitis, right shoulder; J44.9 Chronic obstructive pulmonary disease, unspecified; F17.210 Nicotine dependence, cigarettes, uncomplicated; M25.811 Other specified joint disorders, right shoulder
CPT/HCPCS: 29807; 29828; 29826; 29823; 76942; J0690; J1100; J1885; J2250; J2370; J2405; J3010

== ENCOUNTER 2021-09-12 17:55 | Outpatient (REF) | payer BC, SELFPAY ==
[2021-09-14 12:02] LABS: COVID-19 RT-PCR UVMMC Result Positive (Negative)
== END 2021-09-12 17:56 | disposition home or self-care (01) ==
LOC: LBN 17:55
PROVIDERS: PCP Nurse Practitioner; Visit Provider Physician Assistant
DX: Z20.822 Contact with and (suspected) exposure to COVID-19 (principal)
CPT/HCPCS: U0003

== ENCOUNTER 2021-12-26 14:42 | Outpatient (CLI) | payer SELFPAY ==
--- NOTE | 2021-12-26 14:00 | DI.RAD_ITS ---
Exam(s) XR FOOT RT COMPLETE EXAM: XR FOOT RT COMPLETE CLINICAL HISTORY: foot pain. TECHNIQUE: 2D digital imaging was performed. Three views. COMPARISON: CR RIGHT ANKLE COMPLETE from 10/05/2015 FINDINGS: BONES: No acute fracture is present. No bony destructive lesion is seen. Chronic appearing deformity of the 2nd metatarsal head and proximal phalanx of the 2nd toe. JOINTS: No dislocation present. Degenerative changes talonavicular knee and navicular cuneiform join ts. SOFT TISSUE: Normal. IMPRESSION: Chronic appearing deformities of the 2nd proximal phalanx and 2nd metatarsal head. Degenerative ward ges. DATA REPOSITORY: RADIATION DOSE DELIVERED:
== END 2021-12-26 14:43 | disposition home or self-care (01) ==
LOC: DIORS 14:42
PROVIDERS: PCP Nurse Practitioner; Referring Provider Nurse Practitioner; Visit Provider Physician Assistant Surgical
DX: M79.671 Pain in right foot (principal); M21.6X1 Other acquired deformities of right foot
CPT/HCPCS: 73630

== ENCOUNTER 2022-03-16 02:15 | Outpatient (CLI) | payer SELFPAY ==
[2022-03-16 12:52] LABS: ALT 60 U/L (16-63); AST 40 U/L (15-37); Albumin 3.9 g/dL (3.4-5.0); Alkaline Phosphatase 59 U/L (46-116); Anion Gap 6.8 mmol/L (3-11); BUN 13 mg/dL (7-18); Bilirubin, Total 0.6 mg/dL (0.2-1.0); CO2 30.2 mmol/L (21.0-32.0); Calcium 9.3 mg/dL (8.5-10.1); Calculated LDL 77 mg/dL (<100); Chloride 104 mmol/L (98-107); Cholesterol 171 mg/dL (<200); Estimated GFR 85.63 (mL/min/1.73m2); Glucose 95 mg/dL (74-106); HDL Cholesterol 74 mg/dL (40-60); Potassium 4.5 mmol/L (3.5-5.1); Sodium 141 mmol/L (136-145); Total Protein 7.8 g/dL (6.4-8.2); Triglyceride 101 mg/dL (<150)
== END 2022-03-16 02:16 | disposition home or self-care (01) ==
LOC: LOS 02:15
PROVIDERS: PCP Nurse Practitioner Family; Visit Provider Nurse Practitioner Family
DX: E78.5 Hyperlipidemia, unspecified (principal)
CPT/HCPCS: 36415; 80053; 80061

== ENCOUNTER 2022-06-28 20:58 | Outpatient (REF) | payer BC, SELFPAY ==
[2022-06-28 21:15] LABS: Abs Immature Grans 0.01 10^3/uL (0.0-0.06); Absolute Basophil Count 0.06 10^3/uL (0.0-0.2); Absolute Eosinophil Count 0.11 10^3/uL (0.0-0.7); Absolute Lymphocyte Count 1.83 10^3/uL (1.2-3.4); Absolute Monocyte Count 0.59 10^3/uL (0.1-0.8); Absolute Neutrophil Count 3.72 10^3/uL (1.2-6.7); Basophils % 0.9; Eosinophils % 1.7; HCT 47.3 % (40.0-50.0); HGB 16.6 g/dL (13.5-17.5); Immature Grans % 0.2; MCHC 35.1 % (32.0-36.0); MCV 91 fL (80-95); MPV 10.9 fL (8.0-11.0); Monocytes % 9.3; Neutrophils % 58.9; Platelet Count 247 10^3/uL (130-400); RBC 5.19 10^6/uL (4.36-5.78); RDW 11.2 % (11.8-14.1); RDW-SD 37.8 fL; WBC 6.32 10^3/uL (4.4-10.8)
[2022-06-28 21:24] LABS: ALT 80 U/L (16-63); AST 37 U/L (15-37); Albumin 4.5 g/dL (3.4-5.0); Alkaline Phosphatase 69 U/L (46-116); Anion Gap 11.5 mmol/L (3-11); BUN 10 mg/dL (7-18); Bilirubin, Total 0.9 mg/dL (0.2-1.0); CO2 24.5 mmol/L (21.0-32.0); CREATININE 1.1 mg/dL (0.70-1.30); Calcium 9.9 mg/dL (8.5-10.1); Chloride 103 mmol/L (98-107); Glucose 119 mg/dL (74-106); Magnesium 1.9 mg/dL (1.8-2.4); Potassium 3.7 mmol/L (3.5-5.1); Sodium 139 mmol/L (136-145); Total Protein 8.6 g/dL (6.4-8.2)
== END 2022-06-28 20:59 | disposition home or self-care (01) ==
LOC: LBN 20:58
PROVIDERS: PCP Nurse Practitioner Family; Visit Provider Nurse Practitioner Family
DX: R19.7 Diarrhea, unspecified (principal); R10.31 Right lower quadrant pain; R42 Dizziness and giddiness
CPT/HCPCS: 80053; 83735; 85025

== ENCOUNTER 2022-10-31 14:23 | Outpatient (CLI) | payer BC, SELFPAY ==
--- NOTE | 2022-10-31 13:45 | DI.RAD_ITS ---
Exam(s) XR KNEE RT 3V AP,LAT,BERTA EXAM: XR KNEE RT 3V AP,LAT,BERTA CLINICAL HISTORY: knee pain. TECHNIQUE: 2D digital imaging was performed of the right knee. Three views obtained. Merchant, AP an d lateral views were obtained. COMPARISON: None. FINDINGS: BONES: No acute fracture is present. No bony destructive lesion is seen. JOINTS: The knee is normally aligned. No joint effusion is seen. Small osteophytes are seen at the po sterior patella. There is mild narrowing of the medial femoral tibial joint. There is a well cortic ated osseous density at the superior aspect of the patella. SOFT TISSUE: Normal. IMPRESSION: Mild degenerative changes of the knee. DATA REPOSITORY: RADIATION DOSE DELIVERED:
== END 2022-10-31 14:24 | disposition home or self-care (01) ==
LOC: DIORS 14:23
PROVIDERS: PCP Nurse Practitioner Family; Visit Provider Student in an Organized Health Care Education/Training Program
DX: M17.11 Unilateral primary osteoarthritis, right knee (principal)
CPT/HCPCS: 73562

== ENCOUNTER → 2023-01-18 03:01 | Outpatient (CLI) | payer BC, SELFPAY ==
--- NOTE | 2023-01-18 07:45 | DI.MRI_ITS ---
Exam(s) MR LOWER JOINT RT WO EXAM: MR LOWER JOINT RT WO CLINICAL HISTORY: PAIN,arthritis rt knee, m17.11. TECHNIQUE: Multiplanar multisequence MRI was performed. COMPARISON: CR XR KNEE RT 3V AP,LAT,BERTA from 10/31/2022 FINDINGS: BONES: There is no fracture or contusion pattern. JOINTS: A small joint effusion is present. Articular cartilage: Patellofemoral joint: Marked thinning of the cartilage of the lateral patellar facet and patellar apex. Degenerative subchondral cyst in the patellar apex and lateral patellar fac et superiorly. Periarticular spurring. Medial femoral tibial joint: Cartilage thinning and irregularity throughout. . Lateral femoral tibial joint: Articular mild thinning. TENDONS: Extensor mechanism: Unremarkable. Medial retinaculum: Unremarkable. Lateral retinaculum: Unremarkable. Popliteus: Unremarkable. MUSCLES: Unremarkable. MENISCI: The medial meniscus shows mild degenerative intrasubstance signal.. The lateral meniscus is unremarkable. SOFT TISSUES: Sher's cyst measuring 6.5 cm in length. Mild anterior subcutaneous edema. LIGAMENTS: Anterior Cruciate: Anterior cruciate ligament appears thinned but intact. Posterior Cruciate: Unremarkable. Medial Collateral:Unremarkable. Lateral Collateral: Unremarkable. IMPRESSION: Severe degenerative changes of the patellofemoral joint. Cartilage thinning and irregularity of the medial femoral condyle. Small joint effusion and Sher cyst. The anterior cruciate ligament appears thin but intact. DATA REPOSITORY:
== END ==
PROVIDERS: PCP Nurse Practitioner Family; Visit Provider Student in an Organized Health Care Education/Training Program
DX: M17.11 Unilateral primary osteoarthritis, right knee (principal)
CPT/HCPCS: 73721

== ENCOUNTER 2023-03-28 04:52 | Outpatient (CLI) | payer BC, SELFPAY ==
[2023-03-28 11:45] LABS: ALT 38 U/L (16-63); AST 24 U/L (15-37); Albumin 3.8 g/dL (3.4-5.0); Alkaline Phosphatase 44 U/L (46-116); BUN 10 mg/dL (7-18); Bilirubin, Total 0.7 mg/dL (0.2-1.0); Calcium 9.1 mg/dL (8.5-10.1); Calculated LDL 88 mg/dL (<100); Chloride 106 mmol/L (98-107); Cholesterol 181 mg/dL (<200); Glucose 94 mg/dL (74-106); HDL Cholesterol 73 mg/dL (40-60); Potassium 4.1 mmol/L (3.5-5.1); Sodium 142 mmol/L (136-145); Total Protein 7.5 g/dL (6.4-8.2); Triglyceride 101 mg/dL (<150)
== END 2023-03-28 04:53 | disposition home or self-care (01) ==
LOC: LOS 04:52
PROVIDERS: PCP Nurse Practitioner Family; Visit Provider Nurse Practitioner Family
DX: Z00.00 Encounter for general adult medical examination without abnormal findings (principal); E78.5 Hyperlipidemia, unspecified
CPT/HCPCS: 36415; 80053; 80061

== ENCOUNTER 2023-04-16 04:52 | Outpatient (CLI) | payer BC, SELFPAY ==
[2023-04-16 09:59] LABS: HGB 14.8 g/dL (13.5-17.5); MCH 32.3 pg (27.0-33.0); MCHC 33.6 % (32.0-36.0); MCV 96 fL (80-95); MPV 10.4 fL (8.0-11.0); Platelet Count 213 10^3/uL (130-400); RBC 4.58 10^6/uL (4.36-5.78); RDW 11.6 % (11.8-14.1); RDW-SD 41.2 fL; WBC 7.08 10^3/uL (4.4-10.8)
[2023-04-16 10:09] LABS: Anion Gap 6.4 mmol/L (3-11); BUN 11 mg/dL (7-18); CO2 30.6 mmol/L (21.0-32.0); CREATININE 0.9 mg/dL (0.70-1.30); Calcium 9.5 mg/dL (8.5-10.1); Chloride 103 mmol/L (98-107); Estimated GFR 96.57 (mL/min/1.73m2); Glucose 98 mg/dL (74-106); Potassium 4.7 mmol/L (3.5-5.1); Sodium 140 mmol/L (136-145)
== END 2023-04-16 04:53 | disposition home or self-care (01) ==
LOC: LBO 04:52
PROVIDERS: PCP Nurse Practitioner Family; Visit Provider Student in an Organized Health Care Education/Training Program
DX: M17.11 Unilateral primary osteoarthritis, right knee (principal); Z01.818 Encounter for other preprocedural examination
CPT/HCPCS: 36415; 80048; 85027

== ENCOUNTER 2023-04-16 08:59 | Outpatient (CLI) | payer BC, SELFPAY ==
--- NOTE | 2023-04-16 08:30 | DI.RAD_ITS ---
Exam(s) XR STANDING ALIGNMENT XR KNEE RT 1V EXAM: XR STANDING ALIGNMENT and XR knee RT 1 V CLINICAL HISTORY: PRE OP RIGHT TKR. TECHNIQUE: 2D digital imaging was performed. Five images were obtained. COMPARISON: CR XR KNEE RT 3V AP,LAT,BERTA from 10/31/2022 CR XR KNEE RT 1V from 04/16/2023 FINDINGS: BONES: The hips are well maintained. The femoral tibial joint of the right knee is well maintained. There is spurring seen at the posterior patella. No joint effusion is seen in the right knee. The left knee is well maintained. The ankles are well maintained.There is no significant leg length disc repancy. SOFT TISSUE: Normal. IMPRESSION: Degenerative changes seen in the right knee particularly the patellofemoral joint. DATA REPOSITORY: RADIATION DOSE DELIVERED:
== END 2023-04-16 09:00 | disposition home or self-care (01) ==
LOC: DIORS 09:01
PROVIDERS: PCP Nurse Practitioner Family; Visit Provider Physician Assistant
DX: M17.11 Unilateral primary osteoarthritis, right knee (principal)
CPT/HCPCS: 73560; 77073

== ENCOUNTER 2023-04-24 07:08 | Day surgery (SDC) | payer BC, SELFPAY ==
[2023-04-24] VITALS (16 sets, daily range): BP systolic 107–165; BP diastolic 57–92; PULSE 51–70; RESP 9–28; TEMP 36–36.7; O2SAT 92–98; BMI 30.2
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
--- NOTE | 2023-04-24 07:24 | PDOC.DSDIS_ITS ---
Date of service: 04/24/23 Time of Service: 07:27 Discharge Plan Disposition Patient Disposition: Home Condition: Good Discharge Details Reason For Visit: Right knee DJD Attending Provider: Sean Barron Primary Care Provider: Leroy Padilla Home Meds and New Rx's Prescriptions: New acetaminophen 500 mg tablet 1,000 mg PO Q8H PRN Qty: 90 0RF Rx Instructions: Take two tablets up to every 8 hours as needed for pain aspirin 81 mg tablet,delayed release (DR/EC) 81 mg PO BID 30 Days Qty: 60 0RF celecoxib [Celebrex] 200 mg capsule 200 mg PO BID PRNQty: 60 0RF Rx Instructions: Take one tablet twice daily for pain and inflammation docusate sodium [Colace] 100 mg capsule 100 mg PO BID Qty: 30 0RF dexamethasone 4 mg tablet 4 mg PO DAILY Qty: 2 0RF Rx Instructions: Take one tablet once daily for two days gabapentin 300 mg capsule 300 mg PO QHS Qty: 14 0RF Rx Instructions: Take one tablet at bedtime oxycodone 5 mg tablet 5 mg PO Q4H PRNQty: 18 0RF Rx Instructions: Take one tablet up to every 4 hours as needed for severe postoperative pain Continued atorvastatin 40 mg tablet 40 mg PO QPM Qty: 90 4RF trazodone 50 mg tablet 50 mg PO QHS PRN (Reason: sleep) Qty: 90 1RF omeprazole 40 mg capsule,delayed release(DR/EC) 40 mg PO DAILY Qty: 90 4RF Discharge Instructions Additional Instructions: Total Knee Discharge Instructions Activity: The most important activity is to walk and to work on gentle motion (both flexion and extension). You should try to take short walks a few times a day. It is important that when resting you work on keeping the knee straight. Avoid putting a pillow behind the knee as this will encourage flexion. Work on range of motion exercises as provided by Physical Therapy. - Start outpatient physical therapy within 2 weeks. - You should wear the YOUSUF hose on both legs for 2 weeks. You may remove these at night. You may also use any compression sock in place of the YOUSUF hose. - Utilize [employer] to review exercises, see videos on exercises and obtain basic information pertaining to your surgery and your recovery. Dressing: Remove the Ron wrap by 2 days after your surgery and put on the YOUSUF stocking given to you from the hospital. Keep the surgical dressing (underneath the RON wrap) in place for at least one week. After the first week it may be removed and replaced with light gauze and tape or nothing. The wound and dressing may get wet after 3 days but avoid soaking the dressing or otherwise it will need to be changed. Many people prefer covering the dressing with cling wrap (saran wrap) to minimize it from getting soaked. If it gets wet, just pat dry. If it starts to peel off then it will need to be changed. Medications: - You should take Tylenol and anti-inflammatory Celebrex as your primary pain control medications. If the Celebrex is too expensive or not covered, please call the office for another alternative (Advil/Ibuprofen or Naproxen/Aleve) - You have been prescribed a stronger pain medication Oxycodone for breakthrough pain, take as needed as prescribed. - You take a stomach acid reduction agent Omeprazole at baseline continue with this medication to help reduce stomach acid and reflux. - You have been prescribed Gabapentin to take at night for restlessness and nerve pain. - You will be taking Aspirin 81mg twice a day for DVT prevention unless instructed otherwise. - You have also been prescribed Decadron to take to control post-operative nausea and pain. You will start this tomorrow. - If you have constipation you should take Colace (which has been prescribed) or Miralax (which is available [id number]). It takes most people 3-4 days to have a bowel movement. Follow-up: 2 weeks If you have any acute concerns or questions, please do not hesitate to contact the office at [phone]. You may contact Dr. Barron with any questions after hours through the hospital at [phone] or on his cell phone at [phone]. Referrals: Sean Barron MD [ [facility] STAFF PHYSICIAN] - Equipment/Supplies: Walker Activity:: Activity as Tolerated Remove Dressings/Wound Care:: Do Not Remove Shower/Bathe:: 72 hours and Cover Diet:: As Tolerated Discharge Orders Discharge Orders: Discharge Order (Routine); Ordered 04/24/23 Ordered By: Milly Cadena
[2023-04-24] MEDS: Acetaminophen 500 MG TAB 1000 MG PO (07:53)
[2023-04-24] MEDS: Gabapentin 300 MG CAP PO (07:54)
[2023-04-24] MEDS: Celecoxib 200 MG CAP 400 MG PO (07:54)
[2023-04-24] MEDS: Lactated Ringers 1,000 ML 80 ML IV (07:55)
--- NOTE | 2023-04-24 08:14 | W.ANESNERVE ---
Nerve Block Single Injection Procedure Date and Time Date Performed: 04/24/23 Procedure Start: 08:08 Location Where Procedure Performed Procedure Location: Day Surgery Unit Reason Performed: Postoperative Analgesia Requesting Provider: Sean Barron Timeout Performed Timeout Performed: Yes Monitoring Used ECG, Blood Pressure and SpO2 Sterility Sterility: Hand Hygiene, Surgical Cap, Surgical Mask, Sterile Gloves and Chlorhexidine Sedation Given During Procedure Sedation Given (Indicate Dose Given): Versed IV Dose:: 2 mg Patient Mental Status Patient Mental Status: Sedate with meaningful communication Nerve Block 1st Nerve Block: Laterality: Right Block Type: Adductor Canal Ultrasound Image Saved?: Yes Needle / Catheter Used: 100mm SonoPlex II Local Anesthetic Bolus (Indicate Dose Given): Lidocaine used for local infiltration of skin, Injected in 3-5ml increments after negative blood aspiration and Bupivacaine 0.25% Dose:: 6 mL Additives (Indicate Dose Given): None Ultrasound: Sterile probe cover and gel used Nerve Stimulator: Supplement to Ultrasound use and No twitch or parasthesia noted < 0.5 mA Paresthesia: None Procedure Tolerated: No Complications Procedure Outcome: Successful Performed By: Nic Carlson 2nd Nerve Block: Laterality: Right Block Type: Other (anterior femoral cutaneous) Ultrasound Image Saved?: Yes Needle / Catheter Used: 100mm SonoPlex II Local Anesthetic Bolus (Indicate Dose Given): Injected in 3-5ml increments after negative blood aspiration and Bupivacaine 0.25% Dose:: 5 mL Additives (Indicate Dose Given): None Ultrasound: Sterile probe cover and gel used Nerve Stimulator: Supplement to Ultrasound use and No twitch or parasthesia noted < 0.5 mA Paresthesia: None Procedure Tolerated: No Complications Procedure Outcome: Successful Performed By: Nic Carlson
[2023-04-24] MEDS: ceFAZolin 2 GM/50 ML BAG IVPB (08:48)
--- NOTE | 2023-04-24 10:07 | ROE_ITS ---
Date of service: 04/24/23 Time of Service: 09:00 Operative Note Operative Note DATE OF PROCEDURE: 04/24/23 PRE-OP DIAGNOSIS: Right Knee Osteoarthritis POST-OP DIAGNOSIS: same PROCEDURE: Right Total Knee Replacement SURGEON: Sean Barron SERGING MACHINE OPERATOR: Milly Cadena ANESTHESIA TYPE: Spinal Refer to Anesthesia Record ESTIMATED BLOOD LOSS: 100 PATHOLOGY: none sent TOURNIQUET TIME: 0 COMPLICATIONS: None Patient was transported to: PACU Patient's condition: stable Implants: 1. Depuy Attune Cementless Cruciate Retaining Femoral Component, Size 7 2. Depuy Attune Cementless Fixed Bearing Tibial Component, Size 8 3. Depuy Attune 7x6 CR/FB Poly 4. Depuy Attune Patellar Component, Size 38 Indications: I have seen Jaime in clinic for symptoms of knee arthritis, confirmed with radiographic findings. He has exhausted nonoperative methods and was having significant limitations in daily function and desired better function and less pain. I discussed the technical details of a knee replacement. I explained the risks of the procedure to include, but not limited to, bleeding, infection, pain, stiffness, fracture, damage to nerves and vessels, damage to muscles and tendons, loosening, need for repeat procedure, blood clot and cardiopulmonary demise. Despite these risks, Jaime elected to proceed. Findings: There was a large full thickness fissure of the medial femoral condyle and some wear of the medial tibia with complete loss of cartilage from the medial facet of the patella. Procedure Description: Jaime was greeted in the preoperative holding area where the correct side was identified and marked. The consent was reviewed with the patient and signed. The history and physical was updated. All questions were answered. Preoperative medications were administered: Acetaminophen 1000mg, Celebrex 400mg, and Gabapentin 300mg. An adductor canal block was then administered by the anesthesia team in the PACU. Jaime was taken back to the operating room. A spinal anesthestic was then administered. The patient was placed into the supine position on the operating room table. A nonsterile tourniquet was placed high onto the leg but only used for cementing. Posts were placed for positioning during the procedure. All bony prominences were well padded. Prophylactic antibiotics in the form of Cefazolin were administered. 1g of Tranxemic Acid was given intravenously within 30 minutes of incision. The right leg was then prepped with Chloraprep and draped in a standard fashion with impervious stockinette. A second prep with Chloraprep was performed prior to application of Iodine impregnated skin protection. A timeout to confirm correct identity, side and site, procedure, allergies, anesthesia, and medical concerns was performed. With the knee in some flexion, a midline incision was made overlying the knee. Full thickness skin flaps were raised once the extensor mechanism was encountered. These were raised medially and laterally. Any bleeding was controlled with electrocautery. Once the extensor mechanism was fully exposed, a medial parapatellar arthrotomy was performed in a flexed position. All bleeding from the arthrotomy and the geniculate arteries was coagulated. A medial subperiosteal peel was performed with electrocautery to the midcoronal plane. The fat pad was removed while keeping the patellar tendon protected. The anterior distal femur synovium was removed for later visualization. The ACL and PCL were resected and the anterior horn of the lateral meniscus was transected. The knee was then flexed with the patella everted. Large osteophytes from the tibia were removed. Large osteophytes from the femur were removed. Using a step drill, and based on preoperative templating, the femoral canal was entered. This was done with a step drill without any difficulty. The intramedullary distal femoral cut guide was inserted, set to a 5 degree valgus cut and 9mm cut thickness. The distal femoral cut guide was then held in position and pinned. With the soft tissues protected, the distal cut was performed. This was passed over a few times to ensure a planar cut. I then turned attention to the tibia. The extramedullary guide was placed onto the leg. The distal aspect was slid medial to adjust for position of center of ankle and stay in line with shaft of the tibia. Approximately 3-5 degrees of posterior slope was kept in the proximal cutting guide. The center of the guide was aligned with the PCL. The stylus was used to assess cut thickness. The medial side, most involved side, was set for a 6mm cut, corresponding to 8-9mm laterally. This was then held in position and pinned into place with 2 additional pins and a cross pin for stability. The medial and lateral collateral ligaments were protected and the cut was performed. With this completed, it was assessed and noted to be of appropriate dimensions. The guide was removed. A spacer block was inserted and the knee was brought into extension. The 6mm spacer block provided full extension, without hyperextension and with stability of both the medial and lateral collateral ligaments was assessed. The pins from the femur and the tibia were then removed. The distal femur was then sized. The anterior stylus was placed onto the lateral ridge of the anterior femur. This indicated a size 7 femur. The ext ernal rotation of the guide was adjusted to 3 degrees to match the epicondylar axis, perpendicular to [place]?s line. The 4-in-1 cutting guide was the placed. The posterior medial femur cut was evaluated and appeared of good thickness. The spacer block was inserted underneath the cutting guide and stability was confirmed in 90 degrees of flexion. An prince wing was used to confirm appropriate position of the anterior cut to avoid notching. This cutting guide was ensured to be flush on the cut surface and then pinned into place with headed pins. While protecting the soft tissues, quad tendon, and collateral ligaments, the anterior and posterior cuts were performed with a saw. The central two pins were removed and the posterior and anterior chamfers were cut next. The notch-cutting guide was placed. This was pinned to lateralize the femoral component as much as possible while keeping it flush on the cut surface. This was then pinned into position. A reciprocating saw was used to make the notch cut. A rasp smoothed the cut surfaces. The medial and lateral menisci were removed. A trial femoral component was then inserted, impacted down to the cut surfaces, and the lug holes were drilled. A provisional trial tibial component was placed and the knee was brought through range of motion. There was noted to be excellent extension and flexion. There was no significant instability. The patella was tracking without thumbs. A size 6mm polyethylene component provided the best range of motion and stability with less than 2mm gapping with medial and lateral stress and full extension without significant hyperextension. The tibial cut surface was fully exposed. The tibia was then sized as a 8. The tibia had been previously marked during trialing to correspond to the center of the tibial component to help with rotation. The trial was aligned to this abeba, approximately rotated to the medial 1/3rd of the tibial tubercle. The trial was pinned into place. The tibia was prepared with a reamer and a keel punch and lug holes. The knee was then brought into extension and the patella was measured as 25mm. Using the patellar clamp and cut guide, this was resected to a flat surface with at least 13mm of thickness remaining. The size 38 patella fit the best. This was oriented and then clamped into position. The lugs were drilled. The trial components were removed. The final components were opened on the back table. The periosteal and capsular tissues, especially posteriorly, around the knee were then systematically injected with a periarticular cocktail consisting of 246mg of Ropivacaine, 0.5mg of Epinephrine, 0.08mg of Clonidine, and 30mg of Ketorolac, diluted to 100cc. On the back table, with the implants opened, the cement was mixed. One batch of high viscosity cement was prepared with vacuum assistance. After the cement was ready a small amount was placed on the cut surface of the patella and the patellar button was clamped into position and held. While the cement was hardening, the cementless knee components were placed. Starting with the tibial component, the tibia was subluxed anteriorly and the lug holes of the component were lined up. The tibia was then impacted with an impactor and mallet until the tibial component was in contact with the tibia. The final polyethylene component was inserted. Then, the femoral component was inserted. The lug holes were aligned and the component was impacted into position. The knee was irrigated with Surgiphor Betadine solution. This was allowed to sit in the knee for 3 minutes and then it was irrigated out with saline. After the cement had finally cured, approximately 15min, the clamp was removed from the patella and the knee was taken through range of motion. The patella was tracking with a no-thumbs technique. The capsule was then reapproximated with a No. 1 Vicryl at multiple locations. The capsule was finally closed with a No. 2 Stratafix, barbed suture. The second dosing of 1g TXA was started. Deep tissues were then reapproximated with 0 Vicryl and 2-0 Vicryl. The skin was closed with a running 3-0 Monocryl in a subcuticular fashion. This was reinforced with skin glue. A Mepilex silver dressing was applied along with a [id number] ZACARIAS wrap. A CryoCuff was applied. Jaime was transferred to the hospital bed without difficulty an suffering no apparent complication. Jaime has a good prognosis. Physical therapy will start today and without restrictions, weight-bearing as tolerated. Aspirin 81mg BID will be used for DVT prophylaxis.
--- NOTE | 2023-04-24 11:24 | W.ANESPOSTOP ---
Postoperative Evaluation Date, Time and Location Date Performed: 04/24/23 Time Performed: 11:24 Patient Location: Day Surgery Unit Vital Signs Most Recent Imported Vital Signs: Most Recent Vital Signs Temp Pulse Resp BP Pulse Ox 36.6 C 51 L 15 138/78 98 04/24/23 10:59 04/24/23 10:59 04/24/23 10:59 04/24/23 10:59 04/24/23 10:59 Pain Score Most Recent Pain Score: Most Recent Pain Score Pain Level 2 04/24/23 10:59 Assessment Mental Status: Awake (Alert & Oriented to Patient Baseline) Airway and Respiratory Function: Patent airway with normal (patient baseline) respiratory exam Cardiovascular Function: Hemodynamically Stable Hydration Status: Adequately Hydrated Nausea & Vomiting: No Nausea or Vomiting Pain: Pain is tolerable per patient Peripheral Nerve Block: Regional nerve block not resolved at time of post operative discharge
[2023-04-24] MEDS: oxyCODONE 5 MG TAB PO (11:25)
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
== END 2023-04-24 14:00 | disposition home or self-care (01) ==
PROVIDERS: PCP Nurse Practitioner Family; Visit Provider Student in an Organized Health Care Education/Training Program
PROC: (CPT 27447; principal; 2023-04-24 09:15)
DX: M17.11 Unilateral primary osteoarthritis, right knee (principal); F17.210 Nicotine dependence, cigarettes, uncomplicated; E78.5 Hyperlipidemia, unspecified; K21.9 Gastro-esophageal reflux disease without esophagitis; J44.9 Chronic obstructive pulmonary disease, unspecified; Z79.899 Other long term (current) drug therapy
CPT/HCPCS: 27447; 76942; 97162; 97530; C1776; J0665; J0690; J1100; J2250; J2401; J2405; J2704

== ENCOUNTER 2023-05-07 11:35 | Outpatient (CLI) | payer BC, SELFPAY ==
--- NOTE | 2023-05-07 09:00 | DI.RAD_ITS ---
Exam(s) XR KNEE RT 1V XR STANDING ALIGNMENT EXAM: XR STANDING ALIGNMENT CLINICAL HISTORY: 1ST POST OP R TKA. TECHNIQUE: 2D digital imaging was performed. Five images were obtained. COMPARISON: CR XR KNEE RT 1V from 04/16/2023 CR XR STANDING ALIGNMENT from 04/16/2023 FINDINGS: BONES: The hips are well maintained. The patient is now status post right total knee replacement. T he orthopedic hardware appears in good position. There are mild degenerative changes seen in the lef t knee with narrowing of the medial joint space and spurring of the lateral tibial plateau. The ankl es are well maintained.There is no significant leg length discrepancy. SOFT TISSUE: Normal. IMPRESSION: Status post right total knee replacement. DATA REPOSITORY: RADIATION DOSE DELIVERED:
== END 2023-05-07 11:36 | disposition home or self-care (01) ==
LOC: DIORS 11:35
PROVIDERS: PCP Nurse Practitioner Family; Visit Provider Student in an Organized Health Care Education/Training Program
DX: Z96.651 Presence of right artificial knee joint (principal); Z47.1 Aftercare following joint replacement surgery
CPT/HCPCS: 73560; 77073

== ENCOUNTER 2023-08-27 22:05 | Outpatient (REF) | payer BC, SELFPAY ==
[2023-08-27 21:47] LABS: Abs Immature Grans 0.03 10^3/uL (0.0-0.06); Absolute Basophil Count 0.06 10^3/uL (0.0-0.2); Absolute Eosinophil Count 0.06 10^3/uL (0.0-0.7); Basophils % 0.5 %; Eosinophils % 0.5 %; HCT 44.4 % (40.0-50.0); HGB 15.1 g/dL (13.5-17.5); Immature Grans % 0.3 %; Lymphocytes % 17.7 %; MCH 31.4 pg (27.0-33.0); MCV 92 fL (80-95); MPV 10.9 fL (8.0-11.0); Monocytes % 5.7 %; Neutrophils % 75.3 %; Platelet Count 242 10^3/uL (130-400); RBC 4.81 10^6/uL (4.36-5.78); RDW 11.6 % (11.8-14.1); RDW-SD 39.5 fL; WBC 11.31 10^3/uL (4.4-10.8)
[2023-08-27 21:49] LABS: BUN 9 mg/dL (7-18); CREATININE 1.1 mg/dL (0.70-1.30); Calcium 9.4 mg/dL (8.5-10.1); Chloride 103 mmol/L (98-107); Estimated GFR 75.43 (mL/min/1.73m2); Glucose 169 mg/dL (74-106); Potassium 3.3 mmol/L (3.5-5.1); Sodium 141 mmol/L (136-145)
[2023-08-27 21:52] LABS: Absolute Monocyte Count 0.64 10^3/uL (0.1-0.8); Absolute Neutrophil Count 8.52 10^3/uL (1.2-6.7)
[2023-08-29 10:20] LABS: Lyme Ab w Rflx to Lyme Confirm Negative (Negative)
[2023-08-31 13:10] LABS: Anaplasma phagocytophilum Negative (Negative); B. miyamotoi PCR Negative (Negative); Babesia divergens/MO-1 Negative (Negative); Babesia duncani Negative (Negative); Babesia microti Negative (Negative); Ehrlichia chaffeensis Negative (Negative); Ehrlichia ewingii/canis Negative (Negative); Ehrlichia muris eauclairensis Negative (Negative)
== END 2023-08-27 22:06 | disposition home or self-care (01) ==
LOC: LBN 22:05
PROVIDERS: PCP Nurse Practitioner Family; Visit Provider Nurse Practitioner Family
DX: R53.83 Other fatigue (principal); T14.8XXA Other injury of unspecified body region, initial encounter; W57.XXXA Bitten or stung by nonvenomous insect and other nonvenomous arthropods, initial encounter
CPT/HCPCS: 80048; 87798; 85025; 86618

== ENCOUNTER → 2023-10-25 03:03 | Outpatient (CLI) | payer BC, SELFPAY ==
--- NOTE | 2023-10-25 12:43 | DI.RAD_ITS ---
Exam(s) XR FOOT LT COMPLETE EXAM: XR FOOT LT COMPLETE CLINICAL HISTORY: Left foot pain, M79.672. TECHNIQUE: 2D digital imaging was performed of the left foot. Three images were obtained. AP, obli que and lateral views were obtained. COMPARISON: CR XR FOOT RT COMPLETE from 12/26/2021 FINDINGS: BONES: No acute fracture is present. No bony destructive lesion is seen. There is a small plantar anne caneal spur. There is an enthesophyte at the posterior calcaneus. JOINTS: No dislocation present. Joint spaces are well maintained apart from mild narrowing of the 1st MTP joint. SOFT TISSUE: Normal. IMPRESSION: 1. No acute fracture or dislocation. 2. Calcaneal spurs. DATA REPOSITORY: RADIATION DOSE DELIVERED:
--- NOTE | 2023-10-25 12:44 | DI.RAD_ITS ---
Exam(s) XR FOOT RT COMPLETE EXAM: XR FOOT RT COMPLETE CLINICAL HISTORY: Right foot pain, M79.671. TECHNIQUE: 2D digital imaging was performed of the right foot. Three images were obtained. AP, obl ique and lateral views were obtained. COMPARISON: CR XR FOOT RT COMPLETE from 12/26/2021 FINDINGS: BONES: No acute fracture is present. No bony destructive lesion is seen. There is a small enthesophyt e at the posterior calcaneus. Stable deformity of the 2nd toe and head of the 2nd metatarsal bone. JOINTS: No dislocation present. Degenerative changes are seen in the foot particularly at the articul ation of the cuneiform and 1st metatarsophalangeal joint. SOFT TISSUE: Soft tissue densities are again seen on the plantar surface of the foot at the level of the 2nd MTP joint. IMPRESSION: Stable findings in the right foot as described above. DATA REPOSITORY: RADIATION DOSE DELIVERED:
== END ==
PROVIDERS: PCP Nurse Practitioner Family; Visit Provider Podiatrist
DX: M79.671 Pain in right foot (principal); M79.672 Pain in left foot; M77.32 Calcaneal spur, left foot
CPT/HCPCS: 73630

== ENCOUNTER 2024-03-25 11:46 | Day surgery (SDC) | payer BC, SELFPAY ==
[2024-03-25] VITALS (9 sets, daily range): BP systolic 143–160; BP diastolic 85–96; PULSE 53–70; RESP 10–18; TEMP 36.1–36.6; O2SAT 93–98; BMI 29.9
[2024-03-25] MEDS: Acetaminophen 500 MG TAB 1000 MG PO (12:27)
[2024-03-25] MEDS: Celecoxib 200 MG CAP 400 MG PO (12:28)
[2024-03-25] MEDS: Lactated Ringers 1,000 ML 80 ML IV ×2 (12:37→15:30)
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
--- NOTE | 2024-03-25 13:49 | PDOC.DSDIS_ITS ---
Date of service: 03/25/24 Discharge Plan Disposition Patient Disposition: Home Condition: Good Discharge Details Reason For Visit: Right Second toe malunion with chronic sinus tract Attending Provider: Sean Barron Primary Care Provider: Leroy Padilla Home Meds and New Rx's Prescriptions: New acetaminophen 500 mg tablet 500 mg PO Q6H PRN PRN (Reason: pain) Qty: 40 3RF hydrocodone-acetaminophen 5-325 mg tablet 1 tab PO Q6H PRN (Reason: pain) Qty: 10 0RF Continued trazodone 50 mg tablet 50 mg PO QHS PRN (Reason: sleep) Qty: 90 1RF atorvastatin 40 mg tablet 40 mg PO QPM Qty: 90 4RF omeprazole 40 mg capsule,delayed release(DR/EC) 40 mg PO DAILY Qty: 90 4RF celecoxib [Celebrex] 200 mg capsule 200 mg PO BID PRNQty: 60 0RF Rx Instructions: Take one tablet twice daily for pain and inflammation Discontinued acetaminophen 500 mg tablet 1,000 mg PO Q8H PRN Qty: 90 0RF Rx Instructions: Take two tablets up to every 8 hours as needed for pain Discharge Instructions Additional Instructions: Toe Amputation Discharge Instructions Activity: You may weight bear as tolerated. You should keep the leg elevated as much as possible. You may wiggle your toes and move your hip and knee. You should wear the postop sandal when you are up and mobilizing. Dressings: Keep dressing in place until your follow-up. If it is too tight you may rewrap. Cover for bathing. Medications: - You should take Tylenol and Ibuprofen around the clock for baseline pain. - You have been prescribed a stronger narcotic, Hydrocodone, for breakthrough pain. Follow-up: 2 weeks Referrals: Sean Barron MD [ [facility] STAFF PHYSICIAN] - Equipment/Supplies: Partial Weight Bearing Crutches Activity:: Elevate Remove Dressings/Wound Care:: Do Not Remove Shower/Bathe:: Cover Diet:: As Tolerated Discharge Orders Discharge Orders: Discharge Order (Routine); Ordered 03/25/24 Ordered By: Milly Gramajo DS: Diagnosis Discharge Diagnosis (1) Open wound of right foot: Status: Acute (2) Fracture of right toe with malunion: Status: Acute
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
[2024-03-25] MEDS: ceFAZolin 2 GM/50 ML BAG IVPB (14:02)
[2024-03-25] MEDS: TRANEXAMIC ACID/SOD. CHL. 1,000 MG/100 ML BAG 600 MG IVPB (14:08)
[2024-03-25] MEDS: Bupivacaine 0.25% Pres-Free W/EPI 30 ML VIAL (14:09)
[2024-03-25] MEDS: fentaNYL 100 MCG/2 ML VIAL IVP ×2 (15:02→15:09)
[2024-03-25] MEDS: HYDROmorphone 1 MG/ML SYR IVP ×2 (15:19→15:30)
--- NOTE | 2024-03-25 15:23 | W.PM.OP ---
Operative Note Operative Note PRE-OP DIAGNOSIS: Right Second Toe Deformity with Chronic Sinus Tract POST-OP DIAGNOSIS: same PROCEDURE: Right second toe amputation with sinus tract excision SURGEON: Sean Barron ANESTHESIA TYPE: General:No Airway Refer to Anesthesia Record ESTIMATED BLOOD LOSS: 10 TOURNIQUET TIME: 20 COMPLICATIONS: None Patient was transported to: PACU Patient's condition: stable Indications: Jaime is a 63-year-old who suffered a traumatic injury to his right foot when he was about [age] years old. He had significant injury to the right second toe which required multiple surgeries including skin grafting. He was left with some deformity of the second toe and a chronic sinus tract with occasionally it is infected. Given the recurrence of infection and chronic sinus tract as well as a deformity he would like this removed. Therefore I offered annotation of the second toe with sinus tract excision. I discussed technical details of the surgery. I reviewed the risk to include bleeding, infection, skin healing difficulties, need for repeat procedures, third toe abnormality. Despite these risks, he elects to proceed. Findings: There is notable deformity of the second toe. The second toe was disarticulated. The sinus tract dorsally was evaluated which showed he had a static connection to the plantar sinus tract as well. The sinus tract was excised from the dorsal wound and the plantar wound was also opened up and excised as well. Procedure Description: Jaime was greeted in the preoperative holding area. His identity was confirmed correct site was identified and marked. The consent was reviewed the patient and signed. History and physical was updated. He was taken back to the operating room and placed in the supine position on the operating room table. The right foot was elevated and prepped ChloraPrep. An ankle tourniquet was placed. The right foot was then draped in a standard fashion. Prophylactic antibiotics in the form of cefazolin were given. A timeout is performed for safe surgery. The tourniquet was then inflated. A digital block was performed utilizing 0.25% bupivacaine with epinephrine. I then performed a disarticulation of the second toe by making a incision around the PIP joint crease region. This was taken down through the skin only. Electrocautery was then utilized to dissect the tissues down to the proximal phalanx. The soft tissue is elevated off the proximal phalanx all the way to the base of the proximal phalanx and the joint capsule of the MTP joint. This was disarticulated and the toe along with the proximal phalanx was removed. I then turned my attention to the proximal sinus tract. This was ellipsed out at the skin level. After skin dissection there was an obvious cystic structures seen in communication with the skin which was presumed to be the sinus capsule. This was excised sharply. It seemed to track plantarly toward the plantar skin crease and wound. Therefore, I proceeded with excising the plantar sinus tract which showed it had also a cystic type connection moving dorsally. This was excised sharply and with a rongeur. I then closed the 2 wounds from the dorsal and plantar sinus tracts. These were done with nylon sutures. I then deflated the tourniquet. There is no significant bleeding. I then closed the wound from the second toe amputation site in interrupted fashion. There is no significant bleeding. Xeroform was placed over the wound followed by 4 x 4's and a Kerlix and an Ron wrap. He is placed into a postop shoe. At the end the case all counts were correct. No complications. Date of Procedure: 03/25/24
--- NOTE | 2024-03-25 15:28 | W.ANESPOSTOP ---
Postoperative Evaluation Date, Time and Location Date Performed: 03/25/24 Time Performed: 15:28 Patient Location: PACU Vital Signs Most Recent Imported Vital Signs: Most Recent Vital Signs Temp Pulse Resp BP Pulse Ox 36.3 C L 57 L 10 L 156/90 H 95 03/25/24 15:21 03/25/24 15:21 03/25/24 15:21 03/25/24 15:21 03/25/24 15:21 Pain Score Most Recent Pain Score: Most Recent Pain Score Pain Level 6 03/25/24 15:21 Assessment Mental Status: Awake (Alert & Oriented to Patient Baseline) Airway and Respiratory Function: Patent airway with normal (patient baseline) respiratory exam Cardiovascular Function: Hemodynamically Stable Hydration Status: Adequately Hydrated Nausea & Vomiting: No Nausea or Vomiting Pain: Pain is tolerable per patient Peripheral Nerve Block: Patient did not receive a nerve block
== END 2024-03-25 16:45 | disposition home or self-care (01) ==
PROVIDERS: PCP Nurse Practitioner Family; Visit Provider Student in an Organized Health Care Education/Training Program
PROC: (CPT 28820; principal; 2024-03-25 14:15)
DX: S92.511P Displaced fracture of proximal phalanx of right lesser toe(s), subsequent encounter for fracture with malunion; S91.301S Unspecified open wound, right foot, sequela; E78.5 Hyperlipidemia, unspecified; J44.9 Chronic obstructive pulmonary disease, unspecified; Z87.891 Personal history of nicotine dependence; Z96.651 Presence of right artificial knee joint; F32.A Depression, unspecified; W34.00XS Accidental discharge from unspecified firearms or gun, sequela; S91.301A Unspecified open wound, right foot, initial encounter
CPT/HCPCS: 28820; 11420; 11421; J0690; J1100; J1171; J1885; J2405; J2704; J3010

== ENCOUNTER 2024-04-17 10:19 | Outpatient (CLI) | payer BC, SELFPAY ==
--- NOTE | 2024-04-17 08:30 | DI.RAD_ITS ---
Exam(s) XR KNEE RT 2V AP,LAT EXAM: XR KNEE RT 2V AP,LAT CLINICAL HISTORY: ANNUAL F/U R TKA. TECHNIQUE: 2D digital imaging was performed. COMPARISON: CR XR KNEE RT 1V from 05/07/2023 FINDINGS: Two views There is stable position alignment of the components of the prosthesis. No fracture or loosening james dent. IMPRESSION: Stable satisfactory appearance DATA REPOSITORY: RADIATION DOSE DELIVERED:
== END 2024-04-17 10:20 | disposition home or self-care (01) ==
LOC: DIORS 10:19
PROVIDERS: PCP Nurse Practitioner Family; Visit Provider Student in an Organized Health Care Education/Training Program
DX: Z96.651 Presence of right artificial knee joint (principal); Z47.1 Aftercare following joint replacement surgery
CPT/HCPCS: 73560

== ENCOUNTER 2024-04-28 02:18 | Outpatient (CLI) | payer BC, SELFPAY ==
[2024-04-28 16:26] LABS: ALT 48 U/L (16-63); AST 20 U/L (15-37); Albumin 3.9 g/dL (3.4-5.0); Alkaline Phosphatase 58 U/L (46-116); Anion Gap 7.3 mmol/L (3-11); BUN 16 mg/dL (7-18); Bilirubin, Total 0.52 mg/dL (0.2-1.0); CO2 30.7 mmol/L (21.0-32.0); CREATININE 1.2 mg/dL (0.70-1.30); Calcium 9.5 mg/dL (8.5-10.1); Calculated LDL 74 mg/dL (<100); Chloride 104 mmol/L (98-107); Cholesterol 185 mg/dL (<200); Estimated GFR 67.95 (mL/min/1.73m2); Glucose 93 mg/dL (74-106); HDL Cholesterol 75 mg/dL (40-60); Potassium 4.1 mmol/L (3.5-5.1); Sodium 142 mmol/L (136-145); Total Protein 7.7 g/dL (6.4-8.2); Triglyceride 184 mg/dL (<150)
== END 2024-04-28 02:19 | disposition home or self-care (01) ==
LOC: LBO 02:18
PROVIDERS: PCP Nurse Practitioner Family; Visit Provider Nurse Practitioner Family
DX: E78.5 Hyperlipidemia, unspecified (principal)
CPT/HCPCS: 36415; 80053; 80061

== ENCOUNTER 2025-03-16 11:43 | Outpatient (CLI) | payer BC, SELFPAY ==
--- NOTE | 2025-03-16 11:30 | RT.EKG_ITS ---
APPROVED REPORT Exam: Resting ECG Reason for Exam: Annual exam Patient Location: O HR:71 bpm ECG Measurements Heart Rate 71 AXIS LA 182 P 48 QRSd 101 QRS 8 QT 400 T 40 QTc 435 Conclusion Sinus rhythm...normal P axis, V-rate 50- 99 Early transition
== END 2025-03-16 11:44 | disposition home or self-care (01) ==
LOC: DI.CM 11:44
PROVIDERS: PCP Nurse Practitioner Family; Visit Provider Nurse Practitioner Family
DX: R42 Dizziness and giddiness (principal)
CPT/HCPCS: 93010